=== PATIENT | male | born 1935 | race Caucasian/White ===

== ENCOUNTER → 2017-04-25 | Emergency (ER) | payer OTHER ==
[~2017-04-25] VITALS: Ht 167.6 cm; Wt 68.0 kg
[~2017-04-25] MED LIST: AMOX1TAB5 PO; CEPHALEXIN500 MG PO; DONEPEZIL HCL10 MG; GILTUSS TR TAB1 EACH PO; NEURONTIN300 MG PO; RIVASTIGMINE4.5 MG; TAMS0.4C; ZOVIRAX400 M1 PO; ZOVIRAX5 GM TP; ZYRTEC10 MG PO
== END | disposition left against medical advice (07) ==
LOC: ER 16:47
DX: Z53.20 Procedure and treatment not carried out because of patient's decision for unspecified reasons (principal)

== ENCOUNTER → 2017-04-30 | Emergency (ER) | payer OTHER ==
[~2017-04-30] VITALS: Ht 167.6 cm; Wt 72.6 kg
== END | disposition home or self-care (01) ==
LOC: ER 19:04
DX: R53.1 Weakness (principal); N39.0 Urinary tract infection, site not specified

== ENCOUNTER → 2017-06-20 | Emergency (ER) | payer OTHER ==
[~2017-06-20] VITALS: Ht 175.3 cm; Wt 81.6 kg
== END | disposition home or self-care (01) ==
LOC: ER 20:30
DX: R00.2 Palpitations (principal); F41.8 Other specified anxiety disorders

== ENCOUNTER → 2017-08-20 | Emergency (ER) | payer OTHER ==
[~2017-08-20] VITALS: Ht 167.6 cm; Wt 73.5 kg
[~2017-08-20] MED LIST changes: +PROSCAR5 MG
== END | disposition left against medical advice (07) ==
LOC: ER 18:52
DX: Z53.20 Procedure and treatment not carried out because of patient's decision for unspecified reasons (principal)

== ENCOUNTER 2018-05-09 15:03 | Emergency (ER) | payer OTHER ==
[~2018-05-09] VITALS: Ht 167.6 cm; Wt 72.6 kg
[2018-05-09] MEDS ORDERED: TAMS0.4C (15:24)
== END 2018-05-09 17:22 | disposition home or self-care (01) ==
LOC: ER 15:03
DX: M65.342 Trigger finger, left ring finger (principal)

== ENCOUNTER 2018-05-17 16:57 | Emergency (ER) | payer OTHER ==
[~2018-05-17] VITALS: Ht 165.1 cm; Wt 70.3 kg
== END 2018-05-17 23:26 | disposition home or self-care (01) ==
LOC: ER 16:57
DX: R42 Dizziness and giddiness (principal)

== ENCOUNTER 2018-05-25 08:11 | Outpatient (CLI) | payer OTHER | END 2018-05-25 08:14 | disposition home or self-care (01) | LOC: SONOGRAMA 08:11 | DX: R22.32 Localized swelling, mass and lump, left upper limb (principal) ==